=== PATIENT | female | born 1995 | race Caucasian/White ===

== ENCOUNTER → 2017-11-03 | Outpatient (CLI) | payer BC ==
[~2017-11-03] MED LIST: IOHEXOL 240 MG/ML 50ML VIAL. ONE; IOHEXOL 300 MG/ML 75 ML VIAL. IV ONE
--- NOTE | 2017-11-03 16:17 | RAD ---
EXAM: Abdomen and pelvis CT with intravenous contrast. HISTORY: Left lower quadrant pain. TECHNIQUE: Computed tomographic images of the abdomen and pelvis were obtained following the administration of 75 cc Omnipaque 300 intravenous contrast. Multiplanar reformatting was performed. *One or more of the following individualized dose reduction techniques were utilized for this examination: 1. Automated exposure control. 2. Adjustment of the mA and/or kV according to patient size. 3. Use of iterative reconstruction technique. COMPARISON: None. FINDINGS: Evaluation of the lower thorax is unremarkable. There is slight fatty infiltration of the liver along the falciform ligament. The gallbladder, pancreas, adrenal glands are unremarkable. The kidneys are unremarkable. The appendix is unremarkable. No abnormally dilated or thickened loop of bowel is seen. There are multiple bilateral ovarian follicles. There is a 1.9 cm peripherally enhancing right ovarian involuting follicle/follicular cyst. There is a small amount of pelvic free fluid. No pathologically enlarged lymph node is seen. There is no suspicious osseous lesion. IMPRESSION: 1. 1.9 cm suspected involuting right ovarian follicle/follicular cyst. There is a small amount of pelvic free fluid, within physiologic limits. 2. Otherwise, no acute abdominal or pelvic finding. Electronically signed by: Lazara Duran MD (11/03/2017 4:13 PM) [id number]
== END | disposition home or self-care (01) ==
LOC: RAD 14:43
DX: K92.1 Melena (principal); R10.32 Left lower quadrant pain
CPT/HCPCS: 74177; Q9967